=== PATIENT | male | born 1990 | race African-American/Black ===

== ENCOUNTER 2024-09-05 07:43 | Emergency (ER) | payer OTHER ==
[~2024-09-05] VITALS: Ht 165.1 cm; Wt 59.6 kg
[2024-09-05 08:20] VITALS: BP 132/80; PULSE 78; RESP 16; TEMP 99.9; O2SAT 99
[2024-09-05] MEDS ORDERED: AUG875T PO (09:05)
[2024-09-05] MEDS ORDERED: CHL12OR MT (09:05)
[2024-09-05] MEDS ORDERED: IBUP-1455 PO (09:05)
--- NOTE | 2024-09-05 09:05 | ED.PDOC ---
Eye-HPI HPI Comments 33 year male with no medical hx presents for tenderness to LUQ of his teeth located at tooth number 26 C/o tenderness to touch Able to eat Denies f/c/n/v/d Chief Complaint: Tooth Pain Time Seen by MD: 08:00 Reviewed Notes: Nurses Notes, Medications, Allergies Allergies: Coded Allergies: NO KNOWN ALLERGIES (Unverified , 09/05/24) Home Meds Active Scripts Chlorhexidine Gluconate (Mouth (CHLORHEXIDINE ORAL RINSE) 473 Ml So, 15 ML MT Q12HR for 10 Days, #1 BOTTLE 0 Refills Prov:TJ PALACIOS ACCOUNTING MANAGER ASSISTANT CONTROLLER 09/05/24 Ibuprofen Micronized (Ibuprofen) 800 Mg Tab, 800 MG PO TIDPRN PRN for 10 Days, #30 TAB 0 Refills Prov:KARTHIKEYAN PALACIOSJose Elias Lomas ACCOUNTING MANAGER ASSISTANT CONTROLLER 09/05/24 Amoxicillin & Pot Clavulanate (AUGMENTIN TABLET) 875 Mg Tb, 875 MG PO BID for 7 Days, #14 TAB 0 Refills Prov:TJ PALACIOS ACCOUNTING MANAGER ASSISTANT CONTROLLER 09/05/24 Information Source: Patient Mode of Arrival: Ambulatory All Other Systems: Reviewed and Negative (Per HPI) Physical Exam General Appearance: No Apparent Distress, Normal HEENT: Normal ENT Inspection, Pharynx Normal, TMs Normal, Other (Gingivitis to too 26. airway intact MMM) Neck: Full Range of Motion, Non-Tender, Normal, Normal Inspection Respiratory: Chest Non-Tender, Lungs Clear, No Accessory Muscle Use, No Respiratory Distress, Normal Breath Sounds Cardiovascular: No Murmur, No Gallop, Regular Rate/Rhythm Breast Exam: Deferred Gastrointestinal: No Organomegaly, Non Tender, No Pulsatile Mass, Normal Bowel Sounds, Soft Genitalia: Deferred Pelvic: Deferred Rectal: Deferred Extremities: No calf tenderness, Normal capillary refill, Normal inspection, Normal range of motion, Non-tender, No pedal edema Musculoskeletal : Apperance: Normal Neurologic: Alert, No Motor Deficits, Normal Affect, Normal Mood, No Sensory Deficits Cerebellar Function: Normal Reflexes: Normal Skin: Dry, Normal Color, Warm Lymphatic: No Adenopathy Was a procedure done? Was a procedure done?: No EENT DIFF Eye: Other X-Ray, Labs, Meds, VS Vital Signs Date Time Temp Pulse Resp B/P (MAP) Pulse Ox O2 Delivery O2 Flow Rate FiO2 09/05/24 08:20 99.9 78 16 132/80 (97) 99 99.9 09/05/24 08:20 78 16 99 Room Air 09/05/24 07:55 99.8 80 16 136/70 (92) 99 X-Ray, Labs, Meds, VS Comment Patient not immunosuppressed. No evidence of tooth fracture, avulsion, or bleeding socket. No e/o retropharangeal abscess, peritonsillar abscess, Ludwigs angina, periapical abscess. No e/o gingival hyperplasia or concern for drug reaction. Rx Abx and continue with Abx Disposition: Discharge home. Discussed return precautions for odontogenic infections and other dental pain emergencies. Will provide dental clinic list. Patient is stable for discharge at this time. External notes reviewed. Test results and diagnostic imaging interpreted. All diagnostic findings, discharge care, education and instructions provided Follow-up with PCP in 2 to 3 days Patient verbalized understanding and agreed to treatment plan Vital signs stable, afebrile, no acute distress noted Patient ambulatory with strong steady gait Advised to return precautions for any new or worsening symptoms, return to ER immediately for re-evaluation Patient is aware that the purpose of this visit was for an acute medical emergency requiring emergent stabilization. Chronic conditions, including malignancies have not been ruled out. Patient is instructed to follow up with PCP as directed and discharge instructions for continued care and workup. If unable to arrange follow-up, patient is to return to the emergency department for reassessment. Patient (parent or legal guardian if applicable) was given verbal and written discharge instructions and acknowledges understanding. Time of 1ST Reevaluation: 09:00 Reevaluation 1ST: Improved Patient Education/Counseling: Diagnosis, Treatment Family Education/Counseling: Diagnosis, Treatment Departure 1 Departure Time of Disposition: 09:02 Impression: Primary Impression: Gingivitis Disposition: HOME / SELF CARE / HOMELESS Condition: Stable e-Prescriptions Chlorhexidine Gluconate (Mouth (CHLORHEXIDINE ORAL RINSE) 473 Ml So 15 ML MT Q12HR for 10 Days, #1 BOTTLE 0 Refills Prov: TJ PALACIOS ACCOUNTING MANAGER ASSISTANT CONTROLLER 09/05/24 Ibuprofen Micronized (Ibuprofen) 800 Mg Tab 800 MG PO TIDPRN PRN for 10 Days, #30 TAB 0 Refills Prov: TJ PALACIOS ACCOUNTING MANAGER ASSISTANT CONTROLLER 09/05/24 Amoxicillin & Pot Clavulanate (AUGMENTIN TABLET) 875 Mg Tb 875 MG PO BID for 7 Days, #14 TAB 0 Refills Prov: TJ PALACIOS NP 09/05/24 Critical Care Note Critical Care Time?: No Stability Stability form required: No Heart Score Heart Score: Heart Score Response (Comments) Value History N/A 0 EKG N/A 0 Age N/A 0 Risk Factors N/A 0 Troponin N/A 0 Total 0 TJ PALACIOS NP Sep 05, 2024 09:05
== END 2024-09-05 09:36 | disposition home or self-care (01) ==
LOC: ER 07:43
DX: K05.10 Chronic gingivitis, plaque induced (principal)